=== PATIENT | female | born 1980 | race Two or more races ===

== ENCOUNTER 2019-05-19 14:02 | Emergency (ER) | payer MEDICAID ==
[~2019-05-19] VITALS: Ht 167.6 cm; Wt 78.0 kg
[2019-05-19] MEDS ORDERED: KETOROLAC 30MG/ML VIAL IM ONE (19:45)
[2019-05-19 22:01] VITALS: BP 108/73
== END 2019-05-19 22:02 | disposition home or self-care (01) ==
LOC: ER 16:29
DX: J02.8 Acute pharyngitis due to other specified organisms (principal); M19.90 Unspecified osteoarthritis, unspecified site; F32.9 Major depressive disorder, single episode, unspecified; Z88.8 Allergy status to other drugs, medicaments and biological substances; Z91.041 Radiographic dye allergy status
CPT/HCPCS: 87070; 87430; 96372; 99283; J1885